=== PATIENT | female | born 1985 ===

== ENCOUNTER 2017-10-01 09:45 | Inpatient (IN) | payer OTHER ==
[~2017-10-01] VITALS: Ht 165.1 cm; Wt 70.8 kg
[~2017-10-01 09:45] MED LIST: MACROBID 100 M100 MG PO; NKA; PRENATAL 19 TA1 EAC1 PO
== END 2017-10-09 14:08 | DRG 766 ==
LOC: LDR 10-06 09:45 → OB/GYN 10-06 09:51 → O/R 10-06 09:51 → LDR 10-06 10:15 → OB/GYN 10-06 18:45
PROVIDERS: Obstetrics & Gynecology
PROC: 0UL70ZZ Occlusion of Bilateral Fallopian Tubes, Open Approach (ICD-10-PCS; 2017-10-06)
PROC: 4A1HXCZ Monitoring of Products of Conception, Cardiac Rate, External Approach (ICD-10-PCS; 2017-10-06)
PROC: 10D00Z1 Extraction of Products of Conception, Low, Open Approach (ICD-10-PCS; principal; 2017-10-06 10:15)
DX: O34.211 Maternal care for low transverse scar from previous cesarean delivery (principal); O32.8XX0 Maternal care for other malpresentation of fetus, not applicable or unspecified; Z37.0 Single live birth; Z3A.39 39 weeks gestation of pregnancy; Z30.2 Encounter for sterilization; Z20.828 Contact with and (suspected) exposure to other viral communicable diseases